=== PATIENT | male | born 1950 | race Caucasian/White ===

== ENCOUNTER 2016-12-26 17:23 | Emergency (ER) | payer SELFPAY ==
[2016-12-26] MEDS ORDERED: OXYMETAZOLINE NASAL SPRAY NAS STA (17:55)
[2016-12-26] MEDS ORDERED: TRANEXAMIC ACID 1,000 MG/10 ML VIAL NAS STA (17:55)
[2016-12-26] MEDS ORDERED: OXYMETAZOLINE NASAL SPRAY NAS ONE (17:59)
[2016-12-26] MEDS ORDERED: TRANEXAMIC ACID 1,000 MG/10 ML VIAL ONE (17:59)
[2016-12-26 18:49] VITALS: BP 165/100
--- NOTE | 2016-12-26 19:19 | ED Physician Documentation ---
PD HPI HEENT - Stated complaint Stated Complaint: NOSE BLEED - Chief complaint Chief Complaint: Heent - History obtained from History obtained from: Patient, Family - History of Present Illness Timing - onset: Last night Timing - duration: Days (1) Timing - details: Intermittant Pain level max: 0 Pain level now: 0 Location: Nose Improves: Nothing Associated symptoms: Other (uses afrin daily). No: Fever Similar symptoms before: Has not had sx before Recently seen: Not recently seen Review of Systems Constitutional: denies: Fever, Chills Skin: denies: Rash Musculoskeletal: denies: Neck pain, Back pain Neurologic: denies: Headache PD PAST MEDICAL HISTORY - Past Medical History Past Medical History: Yes Cardiovascular: Hypertension Neuro: TIA - Past Surgical History Past Surgical History: Yes General: Colonoscopy - Present Medications Home Medications: Ambulatory Orders Medication Instructions Recorded Confirmed Aspirin 325 mg PO DAILY 06/22/13 12/26/16 Lisinopril [Prinivil] 5 mg PO DAILY 06/22/13 12/26/16 hydroCHLOROthiazide [Hydrodiuril] 25 mg PO DAILY 06/22/13 12/26/16 Hydrocodone/Acetaminophen 1 - 2 each PO Q6H PRN #15 tablet 01/09/15 12/26/16 [Hydrocodon-Acetaminophen 5-325] Ondansetron Odt [Zofran] 4 mg TL Q6H PRN #10 tablet 01/09/15 12/26/16 - Allergies Allergies/Adverse Reactions: Allergies Allergy/AdvReac Type Severity Reaction Status Date / Time No Known Drug Allergies Allergy Verified 06/22/13 11:13 - Social History Does the pt smoke?: No Smoking Status: Never smoker Does the pt have substance abuse?: No - Immunizations Immunizations are current?: Yes - POLST Patient has POLST: No PD ED PE NORMAL - Vitals Vital signs reviewed: Yes - General General: Alert and oriented X 3, No acute distress - HEENT HEENT: Moist mucous membranes, Pharynx benign, Other (active bleeding from the R nare) - Cardiac Cardiac: RRR - Respiratory Respiratory: No respiratory distress, Clear bilaterally - Derm Derm: Warm and dry, Other (no petechiae) - Neuro Neuro: Alert and oriented X 3 - Psych Psych: Normal mood, Normal affect Results - Vitals Vitals: Vital Signs - 24 hr 12/26/16 12/26/16 17:31 18:49 Temperature 36.0 C L 36.6 C Heart Rate 87 59 L Respiratory 18 22 Rate Blood Pressure 182/106 H 165/100 H O2 Saturation 96 99 Oxygen O2 Source Room air PD MEDICAL DECISION MAKING - ED course Complexity details: re-evaluated patient, considered differential, d/w patient ED course: Patient is a 66-year-old male with epistaxis to the right nare intermittently for the past 24 hours. He is not lightheaded or dizzy. Not pale. He does use Afrin daily. He blew his nose in the emergency department to remove the clots, was then treated with atomized tranexamic acid, 1.5 mL's in the right nare. Also a spray of Afrin in the right nare. The bleeding resolved and there was no further bleeding in the emergency department. He was observed for 30 minutes after the bleeding had stopped. Recommend that he stop using the Afrin daily as this may be making the mucosa more friable. Recommend that he see his doctor for an intranasal steroid for his allergies. He is not on blood thinners. Patient and family counseled regarding signs and symptoms for which I believe and urgent re-evaluation would be necessary. Patient with good understanding of and agreement to plan and is comfortable going home at this time This document was made in part using voice recognition software. While efforts are made to proofread this document, sound alike and grammatical errors may occur. Departure - Departure Disposition: 01 Home, Self Care Clinical Impression: Epistaxis Condition: Good Instructions: ED Nosebleed Follow-Up: Ade Magana MD [Primary Care Provider] - Within 3 Days Comments: Return if you worsen. If the nose begins to rebleed, tilt your head forward and hold pressure for at least 10 minutes. If you still have bleeding, come back to the emergency department. You need to stop using the Afrin daily as this may be causing your nosebleeds. Talk to your doctor about medication for your allergies. Do not rub, pick or blow your nose for the next 24 hours. Discharge Date/Time: 12/26/16 19:30
== END 2016-12-26 19:30 | disposition home or self-care (01) ==
LOC: ED 17:23
DX: R04.0 Epistaxis (principal); I10 Essential (primary) hypertension; Z79.82 Long term (current) use of aspirin; Z86.73 Personal history of transient ischemic attack (TIA), and cerebral infarction without residual deficits
CPT/HCPCS: 30901; 99283; A9270

== ENCOUNTER 2019-02-16 08:56 | Outpatient (CLI) | payer OTHER | END 2019-02-16 08:57 | disposition home or self-care (01) | LOC: DI 08:56 | PROVIDERS: ATTEND Physician Assistant Medical | DX: I49.9 Cardiac arrhythmia, unspecified (principal); Z86.73 Personal history of transient ischemic attack (TIA), and cerebral infarction without residual deficits; I51.7 Cardiomegaly | CPT/HCPCS: 93306 ==

== ENCOUNTER 2019-07-26 08:40 | Outpatient (CLI) | payer OTHER ==
[2019-07-26 09:30] LABS: CALCIUM 9.5 mg/dL (8.5-10.3); CREATININE 1.1 mg/dL (0.6-1.2)
[2019-07-26 09:34] LABS: HB2 TOTAL 15.6 g/dL; HEMOGLOBIN A1C 0.94 g/dL; HEMOGLOBIN A1C % 7.7 % (4.6-6.2)
== END 2019-07-26 08:41 | disposition home or self-care (01) ==
LOC: LAB 08:40
PROVIDERS: ATTEND Internal Medicine Cardiovascular Disease
DX: I10 Essential (primary) hypertension (principal)
CPT/HCPCS: 36415; 80048; 83036

== ENCOUNTER 2020-11-04 08:00 | Outpatient (CLI) | payer MEDICARE, OTHER | END 2020-11-04 23:59 | disposition home or self-care (01) | LOC: LAB 08:00 | PROVIDERS: ATTEND Internal Medicine | DX: I48.91 Unspecified atrial fibrillation (principal) | CPT/HCPCS: 36416; 85610 ==

== ENCOUNTER 2020-11-06 12:19 | Outpatient (CLI) | payer MEDICARE ==
[2020-11-06 13:21] LABS: CREATININE 1.1 mg/dL (0.6-1.2)
== END 2020-11-06 12:20 | disposition home or self-care (01) ==
LOC: LAB 12:19
PROVIDERS: ATTEND Internal Medicine
DX: I48.91 Unspecified atrial fibrillation (principal)
CPT/HCPCS: 36415; 82565

== ENCOUNTER 2023-06-13 08:00 | Outpatient (CLI) | payer MEDICARE | END 2023-06-13 23:59 | disposition home or self-care (01) | LOC: LAB.S 08:00 | PROVIDERS: ATTEND Physician Assistant Medical | DX: R09.89 Other specified symptoms and signs involving the circulatory and respiratory systems (principal) ==